=== PATIENT | male | born 1945 | race Caucasian/White ===

== ENCOUNTER 2019-03-27 09:45 | Inpatient (IN) | payer OTHER ==
[~2019-03-27] VITALS: Ht 170.2 cm; Wt 89.9 kg
[2019-04-09] MEDS ORDERED: ZOLP5TAB8 PO (16:10)
[2019-04-09] MEDS ORDERED: FLO0.4C PO (16:10)
[2019-04-09] MEDS ORDERED: METO-539 PO (16:10)
[2019-04-09] MEDS ORDERED: ALLO300T2 PO (16:10)
[2019-04-09] MEDS ORDERED: LISI-600 PO (16:10)
[2019-04-09] MEDS ORDERED: SERT50TA PO (16:10)
[2019-04-09] MEDS ORDERED: FINA5TAB11 PO (16:10)
[2019-04-09] MEDS ORDERED: AMIT25TA10 PO (16:10)
[2019-04-09] MEDS ORDERED: OMEP20CA11 PO (16:10)
[2019-04-09 16:27] LABS: BASOPHILS % (AUTO) 0.4 % (0-1); EOSINOPHILS # (AUTO) 0.1 X10'3 (0-0.9); EOSINOPHILS % (AUTO) 1.2 % (0-6); LYMPHOCYTES # (AUTO) 1.3 X10'3 (1.1-4.8); LYMPHOCYTES % (AUTO) 19.4 % (21-51); MEAN CORPUSCULAR HEMOGLOBIN 27.7 PG (27.0-31.0); MEAN CORPUSCULAR HGB CONC 33.7 g/dL (33.0-36.5); MEAN CORPUSCULAR VOLUME 82.2 FL (78-98); MONOCYTES # (AUTO) 0.6 X10'3 (0-0.9); MONOCYTES % (AUTO) 9.2 % (2-12); NEUTROPHILS # (AUTO) 4.6 X10'3 (1.8-7.7); NEUTROPHILS % (AUTO) 69.8 % (42-75); PRE OP HEMATOCRIT 37.2 % (42.0-52.0); PRE OP HEMOGLOBIN 12.5 g/dL (14.0-17.9); PRE OP PLATELET COUNT 172 X10'3 (140-440); RED BLOOD COUNT 4.52 X10'6 (4.70-6.10); RED CELL DISTRIBUTION WIDTH 13.9 % (11.5-14.5)
[2019-04-09 16:29] LABS: ALBUMIN 3.4 G/DL (3.4-5.0); ALBUMIN/GLOBULIN RATIO 0.9 (1.1-1.5); ALKALINE PHOSPHATASE 89 IU/L (46-116); BLOOD UREA NITROGEN 18 MG/DL (7-18); BUN/CREATININE RATIO 18.4 (5.4-32.0); CALCIUM 8.2 MG/DL (8.5-10.1); CHLORIDE 104 MMOL/L (99-107); CREATININE 0.98 MG/DL (0.60-1.10); PRE OP ALT 41 U/L (30-65); PRE OP ANION GAP 7 (8-16); PRE OP AST 28 U/L (10-37); PRE OP BILIRUB, TOTAL 0.4 MG/DL (0.0-1.0); PRE OP GLUCOSE 114 MG/DL (70-104); PRE OP POTASSIUM 3.4 MMOL/L (3.4-5.1); PRE OP SODIUM 140 MMOL/L (135-145); TOTAL CARBON DIOXIDE 29.5 MMOL/L (24-32); TOTAL PROTEIN 7.2 G/DL (6.4-8.2); eGFR 75 ML/MIN
[2019-04-10] VITALS (13 sets, daily range): BP systolic 114–170; BP diastolic 51–98
[2019-04-10] MEDS ORDERED: LIDOcaine 1% (10mg/ml) 2ml vial ONE (05:50)
[2019-04-10] MEDS ORDERED: VANCOMYCIN INJ 1000 MG in NORMAL SALINE 250ml IV.SOLN IV ONE (06:00)
[2019-04-10] MEDS ORDERED: DOCUMENT DATE & TIME OF BETA-BLOCKER PO ONE (06:00)
[2019-04-10] MEDS ORDERED: famotidine 20mg tablet PO ONE (06:00)
[2019-04-10] MEDS ORDERED: cefazolin/dext.iso 2gm/100 ML IV ONE (06:00)
[2019-04-10] MEDS ORDERED: tranexamic acid inj. 1,000 MG in normal saline 100ml IV soln 100 ML IV ONE ×2 (06:00→10:00)
[2019-04-10] MEDS ORDERED: ringers solution, lacted 1,000 ML IV SCH ×2 (06:00→08:48)
[2019-04-10] MEDS ORDERED: ketorolac trometh. 30mg/ml inj. ONE (06:57)
[2019-04-10] MEDS ORDERED: ROPIVAcaine 0.5% (5mg/ml) 30ml vial ONE (06:57)
[2019-04-10] MEDS ORDERED: sevoflurane 250ml liquid IH ONE (07:20)
[2019-04-10] MEDS ORDERED: fentaNYL/PF 50MCG/1 ML 2ML syringe ONE (07:25)
[2019-04-10] MEDS ORDERED: propofol inj 20 ML IV ONE ×2 (07:26→08:12)
[2019-04-10] MEDS ORDERED: MIDAZolam 5mg/5ml vial ONE (07:26)
[2019-04-10] MEDS ORDERED: cloNIDine hcl/PF 100mcg/ml inj ONE (07:30)
[2019-04-10] MEDS ORDERED: hydrocortisone sod succ/PF 100mg/2ml inj. ONE (08:13)
[2019-04-10] MEDS ORDERED: LIDOcaine 1%/PF 5ML 10 MG/ML VIAL ONE (08:13)
[2019-04-10] MEDS ORDERED: dexamethasone sod phosphate 4mg/ml inj. ONE (08:13)
[2019-04-10] MEDS ORDERED: rocuronium 10mg/ml inj IV ONE (08:13)
[2019-04-10] MEDS ORDERED: HYDROmorphone 1 mg/ml syringe IV PRN (08:30)
[2019-04-10] MEDS ORDERED: ondansetron/PF 4mg/2ml inj IV PRN ×2 (08:30→08:50)
[2019-04-10] MEDS ORDERED: ondansetron/PF 4mg/2ml inj ONE (08:30)
[2019-04-10] MEDS: aspirin 325mg tablet PO SCH (08:30)
[2019-04-10] MEDS ORDERED: magnesium hydroxide 30ml (MOM) UD suspension PO PRN (08:30)
[2019-04-10] MEDS ORDERED: zolpidem 5mg tablet PO PRN (08:30)
[2019-04-10] MEDS ORDERED: oxyCODONE IR 5mg (immed. release) tablet PO PRN ×2 (08:30)
[2019-04-10] MEDS ORDERED: diphenhydrAMINE 25mg capsule PO PRN ×2 (08:30)
[2019-04-10] MEDS ORDERED: bisacodyl 10mg suppository rectal RC PRN (08:30)
[2019-04-10] MEDS ORDERED: acetaminophen 325mg tablet PO PRN (08:30)
[2019-04-10] MEDS ORDERED: meperidine/PF 25mg/ml syringe IV PRN ×3 (08:50)
[2019-04-10] MEDS ORDERED: morphine 4 MG/ML inj SYRINge IV PRN ×2 (08:50)
[2019-04-10] MEDS ORDERED: proCHLORperazine 10 MG/2 ml inj IV PRN (08:50)
[2019-04-10] MEDS ORDERED: ROPIVAcaine 0.2%/PF PAIN PUMP 500 ML IJ SCH (09:10)
[2019-04-10] MEDS: potassium cl 20mEq in 1/2 NS 1,000 ML IV SCH ×3 (12:26→23:26)
[2019-04-10] MEDS ORDERED: tranexamic acid inj. 900 MG in normal saline 100ml IV soln 100 ML IV ONE (13:00)
[2019-04-10] MEDS: acetaminophen 325mg tablet PO SCH ×2 (15:51→20:31)
[2019-04-10] MEDS: ceFAZolin 1GM/D5W- ADD-VANTAGE 50 ML IV SCH ×2 (15:51→23:28)
[2019-04-10] MEDS: ketorolac tromethamine 15mg/ml inj. IV SCH ×2 (15:52→20:29)
--- NOTE | 2019-04-10 18:20 | NUR ---
Received report from Mar MCARTHUR. assumed care of patient.
[2019-04-10] MEDS ORDERED: vancomycin/NS 1 GM ADD-VANTAGE 250 ML IV SCH (20:00)
[2019-04-10] MEDS: metoprolol succinate 25mg (24-HOUR) SR. Tablet PO SCH (20:29)
[2019-04-10] MEDS ORDERED: amitriptyline 25mg tablet PO SCH (21:00)
[2019-04-10] MEDS ORDERED: allopurinol 300 MG tablet PO SCH (21:00)
[2019-04-10] MEDS ORDERED: pantoprazole 40mg Tablet.DR PO SCH (21:00)
[2019-04-10] MEDS ORDERED: lisinopril 20mg tablet PO SCH (21:00)
[2019-04-10] MEDS ORDERED: sertraline 50mg tablet PO SCH (21:00)
[2019-04-10] MEDS ORDERED: tamsulosin 0.4mg capsule PO SCH (21:00)
[2019-04-10] MEDS ORDERED: sennosides 8.6mg tablet PO SCH (21:00)
[2019-04-10] MEDS ORDERED: finasteride 5mg tablet PO SCH (21:00)
[2019-04-11] MEDS: acetaminophen 325mg tablet PO SCH ×2 (01:36→07:47)
[2019-04-11] MEDS: ketorolac tromethamine 15mg/ml inj. IV SCH ×2 (01:36→07:48)
[2019-04-11 02:00] VITALS: BP 168/70
[2019-04-11 06:00] VITALS: BP 157/70
--- NOTE | 2019-04-11 06:10 | NUR ---
Gave report to Bryanna MCARTHUR.
--- NOTE | 2019-04-11 06:23 | NUR ---
received report from heather parsons
[2019-04-11 06:35] LABS: ANION GAP 7 (8-16); CHLORIDE 109 MMOL/L (99-107); POTASSIUM 4.1 MMOL/L (3.5-5.1); SODIUM 142 MMOL/L (135-145)
[2019-04-11 06:36] LABS: BASOPHILS % (AUTO) 0.2 % (0-1); EOSINOPHILS # (AUTO) 0.1 X10'3 (0-0.9); EOSINOPHILS % (AUTO) 0.7 % (0-6); HEMATOCRIT 34.1 % (42.0-52.0); HEMOGLOBIN 11.6 g/dl (14.0-17.9); LYMPHOCYTES # (AUTO) 1.5 X10'3 (1.1-4.8); MEAN CORPUSCULAR HEMOGLOBIN 28.2 PG (27.0-31.0); MEAN CORPUSCULAR HGB CONC 34.1 g/dL (33.0-36.5); MEAN CORPUSCULAR VOLUME 82.8 FL (78-98); MEAN PLATELET VOLUME 8.1 FL (7.4-10.4); MONOCYTES # (AUTO) 0.8 X10'3 (0-0.9); MONOCYTES % (AUTO) 9.5 % (2-12); NEUTROPHILS # (AUTO) 6.4 X10'3 (1.8-7.7); NEUTROPHILS % (AUTO) 72.6 % (42-75); PLATELET COUNT 149 X10'3 (140-440); RED BLOOD COUNT 4.12 X10'6 (4.70-6.10); WHITE BLOOD COUNT 8.8 X10'3 (4.5-11.0)
[2019-04-11] MEDS ORDERED: ASPI-1 PO (07:40)
[2019-04-11] MEDS: metoprolol succinate 25mg (24-HOUR) SR. Tablet PO SCH (07:46)
[2019-04-11] MEDS: aspirin 325mg tablet PO SCH (07:48)
[2019-04-11] MEDS: potassium cl 20mEq in 1/2 NS 1,000 ML IV SCH (08:27)
[2019-04-11] MEDS ORDERED: celeCOXIB 100mg capsule PO SCH (20:00)
[2019-04-12] MEDS ORDERED: acetaminophen 325mg tablet PO PRN (08:30)
== END 2019-04-11 09:15 | disposition home or self-care (01) | DRG 483 ==
LOC: PAS IN 04-10 05:22 → EDSTATUS 04-10 08:00 → ORTHO 4S 04-10 11:15
PROVIDERS: ADMIT Orthopaedic Surgery; ATTEND Orthopaedic Surgery
PROC: 0LS30ZZ Reposition Right Upper Arm Tendon, Open Approach (ICD-10-PCS; 2019-04-10)
PROC: 3E0T3BZ Introduction of Anesthetic Agent into Peripheral Nerves and Plexi, Percutaneous Approach (ICD-10-PCS; 2019-04-10)
PROC: 0RRJ00Z Replacement of Right Shoulder Joint with Reverse Ball and Socket Synthetic Substitute, Open Approach (ICD-10-PCS; principal; 2019-04-10 07:20)
DX: M75.121 Complete rotator cuff tear or rupture of right shoulder, not specified as traumatic (principal); D62 Acute posthemorrhagic anemia; E11.9 Type 2 diabetes mellitus without complications; G47.30 Sleep apnea, unspecified; J44.9 Chronic obstructive pulmonary disease, unspecified; M19.011 Primary osteoarthritis, right shoulder; M1A.9XX0 Chronic gout, unspecified, without tophus (tophi); M19.012 Primary osteoarthritis, left shoulder; I10 Essential (primary) hypertension; K21.9 Gastro-esophageal reflux disease without esophagitis; M65.811 Other synovitis and tenosynovitis, right shoulder; N40.0 Benign prostatic hyperplasia without lower urinary tract symptoms; F32.9 Major depressive disorder, single episode, unspecified; Z88.8 Allergy status to other drugs, medicaments and biological substances; Z79.899 Other long term (current) drug therapy
CPT/HCPCS: 36415; 80051; 80053; 82948; 85025; 87081; 97110; 97116; 97161; 97530; A4215; A4565; A4618; A7000; A7526; C1776; G0378; J0690; J0735; J1100; J1720; J1885; J2001; J2250; J2405; J2704; J2795; J3010; J3370; J3480; J7120